=== PATIENT | male | born 1990 | race Caucasian/White ===

== ENCOUNTER 2019-12-03 18:21 | Emergency (ER) | payer BC, OTHER ==
[2019-12-03] MEDS ORDERED: Bacitracin Oint 1 GM U/D Packet TOP ONE (18:45)
--- NOTE | 2019-12-03 19:42 | EDM.PDOC ---
ED HPI GENERAL MEDICAL PROBLEM - General Chief Complaint: Laceration Stated Complaint: LACERATION TO CHIN Time Seen by Provider: 12/03/19 18:40 - History of Present Illness INITIAL COMMENTS - FREE TEXT/NARRATIVE: History of present illness: 29-year-old male presenting with irregular chin laceration sustained prior to arrival here. Apparently he was running through a softball field when he tripped and fell onto gravel and landed directly on his chin. The wound did bleed but bleeding is well controlled now. Does report that he had been drinking at the time. Review of systems: As per history of present illness and below otherwise all systems reviewed and negative. Past medical history: As per history of present illness and as reviewed below otherwise noncontributory. Surgical history: As per history of present illness and as reviewed below otherwise noncontributory. Social history: No reported history of drug abuse. Occasional alcohol and tobacco Family history: As per history of present illness and as reviewed below otherwise noncontributory. Physical exam: GEN: no acute distress, well appearing HEENT: Stellate, irregular laceration of the chin with some missing tissue, bleeding well controlled, normocephalic, mucous membranes moist, Neck: supple, nontender, trachea midline. Lungs: No respiratory distress. Heart: RRR Extremities: Atraumatic. Neurovascularly intact. Neuro: Awake, alert, oriented. Neuro Exam nonfocal. Skin: warm, dry, no lesions Diagnostics: [] Therapeutics: [] MDM: Very irregular complex chin laceration with multiple flaps and missing tissue. I discussed with the patient that this would be better repaired by plastic surgery and as we do not have a plastic surgeon here I recommended transfer, however the patient reports he does not want to be transferred nor have the wound repaired by plastic surgery, he prefers to have attempted repair here. Impression: [] Plan: [] Definitive disposition and diagnosis as appropriate pending reevaluation and review of above. Chin Pain Score (Numeric/FACES): 2 - Related Data Allergies Allergy/AdvReac Type Severity Reaction Status Date / Time No Known Allergies Allergy Verified 12/03/19 19:51 Home Meds: Home Meds cephALEXin [Keflex] 1,000 mg PO BID #40 cap 12/03/19 [Rx] Past Medical History - Past Health History Medical/Surgical History: Denies Medical/Surgical History Psychiatric History: Reports: Anxiety, Depression - Infectious Disease History Infectious Disease History: Reports: None Social & Family History - Family History Family Medical History: Noncontributory - Tobacco Use Smoking Status *Q: Current Every Day Smoker Years of Tobacco use: 2 Packs/Tins Daily: 0.5 - Caffeine Use Caffeine Use: Reports: Coffee, Energy Drinks - Recreational Drug Use Recreational Drug Use: No ED ROS GENERAL - Review of Systems Review Of Systems: See Below (See HPI) ED EXAM, SKIN/RASH Exam: See Below (See HPI) ED SKIN PROCEDURES - Laceration/Wound Repair Face Appearance: Subcutaneous, Other (Bone of chin visible) Distal NVT: Neuro & Vascular Intact Anesthetic Type: Local Local Anesthesia - Lidocaine (Xylocaine): 1% Plain Local Anesthetic Volume: 3cc Skin Prep: Chlorhexidine (Hibiciens), Providone-Iodine (Betadine), Saline Saline Irrigation (cc's): 500 Exploration/Debridement/Repair: Wound Explored, Explored to Base, Moderate Debridement, Moderately Undermined, Foreign Material Removed (Dirt and small bits of gravel), Wound Margins Revised, Multiple Flaps Aligned Closed with: Sutures Lac/Wound length In cm: 4 Suture Size: 5-0 # of Sutures: 12 Suture Type: Prolene, Interrupted Tetanus Status Addressed: Yes (Updated here) Complications: No Course - Vital Signs Text/Narrative:: Irregular, stellate contaminated wound. Discussed with patient on initial evaluation need for plastic surgery repair, however the patient declined. At the time of suturing, it was found that the bone of the mandible was visible through the incision. I again discussed with the patient my recommendation for plastic surgery evaluation and repair due to visible bone, however the patient again declined plastic surgery repair and request that instead I repair it. Wound was repaired, multiple flaps aligned, debrided and margins revised. Wound is very contaminated and was profusely irrigated and all visible gravel/dirt was removed as well as the patient's chin hair that had become contaminated into the wound as well. Patient's tetanus was not up-to-date. This was updated here. Will also cover with Keflex due to contamination of the wound. Last Recorded V/S: Last Vital Signs Temp 97.0 F 12/03/19 23:00 Pulse 72 12/03/19 23:00 Resp 18 12/03/19 23:00 BP 121/73 12/03/19 23:00 Pulse Ox 97 06/27/20 23:00 - Orders/Labs/Meds Orders: Active Orders 24 hr Category Date Time Status Vaccines to be Administered [RC] PER UNIT ROUTINE Care 12/03/19 20:25 Active Meds: Medications Discontinued Medications Generic Name Dose Route Start Last Admin Trade Name Hector PRN Reason Stop Dose Admin Bacitracin 1 dose 12/03/19 18:45 12/03/19 19:17 Bacitracin Oint 1 Gm TOP 12/03/19 18:46 1 dose ONETIME ONE Administration Cephalexin 500 mg 12/03/19 22:50 12/03/19 22:58 Keflex PO 12/03/19 22:51 500 mg ONETIME ONE Administration Diphtheria/Tetanus/Acell Pertussis 0.5 ml 12/03/19 20:25 12/03/19 21:32 Adacel IM 12/03/19 20:26 0.5 ml .ONCE ONE Administration Lidocaine HCl 15 ml 12/03/19 18:45 12/03/19 19:17 Xylocaine-Mpf 1% INJECT 12/03/19 18:46 15 ml ONETIME ONE Administration - Re-Assessments/Exams Free Text/Narrative Re-Assessment/Exam: 12/03/19 22:51 Tolerated suturing well. No acute distress. Wound significantly improved after suturing. Will refer for surgery follow-up for close monitoring, as well as discussed with patient need for suture removal in 7 days. Departure - Departure Time of Disposition: 22:51 Disposition: Home, Self-Care 01 Clinical Impression: Complex laceration of face Qualifiers: Encounter type: initial encounter Qualified Code(s): S01.91XA - Laceration without foreign body of unspecified part of head, initial encounter - Discharge Information Prescriptions: cephALEXin [Keflex] 1,000 mg PO BID #40 cap Instructions: Laceration Care, Adult, [id number], Sutures, [place], or Adhesive Wound Closure, [id number], Sutured Wound Care, [id number] Referrals: Jude Diaz MD [Primary Care Provider] - Forms: ED Department Discharge Additional Instructions: The following information is given to patients seen in the emergency department who are being discharged to home. This information is to outline your options for follow-up care. We provide all patients seen in our emergency department with a follow-up referral. The need for follow-up, as well as the timing and circumstances, are variable depending upon the specifics of your emergency department visit. If you don't have a primary care physician on staff, we will provide you with a referral. We always advise you to contact your personal physician following an emergency department visit to inform them of the circumstance of the visit and for follow-up with them and/or the need for any referrals to a consulting specialist. The emergency department will also refer you to a specialist when appropriate. This referral assures that you have the opportunity for follow-up care with a specialist. All of these measure are taken in an effort to provide you with optimal care, which includes your follow-up. Under all circumstances we always encourage you to contact your private physician who remains a resource for coordinating your care. When calling for follow-up care, please make the office aware that this follow-up is from your recent emergency room visit. If for any reason you are refused follow-up, please contact the [facility] Emergency Department at and asked to speak to the emergency department charge nurse. Please follow-up with the surgeon listed below for further evaluation and reassessment of your wound. You will also need suture removal in 7 days. [facility] - General Surgery Professional Building [address] [place] [address], [address] [place] [address] Sepsis Event Note (ED) - Evaluation Sepsis Screening Result: No Definite Risk - Focused Exam Vital Signs: Vital Signs Temp Pulse Resp BP Pulse Ox 12/03/19 23:00 97.0 F 72 18 121/73 97 12/03/19 18:45 97.0 F 84 15 112/77 95 - My Orders Last 24 Hours: My Active Orders 12/03/19 20:25 Vaccines to be Administered [RC] PER UNIT ROUTINE - Assessment/Plan Last 24 Hours: My Active Orders 12/03/19 20:25 Vaccines to be Administered [RC] PER UNIT ROUTINE
[2019-12-03] MEDS ORDERED: Diphtheria,Pertussis(Acell),Tetanus Vaccine 0.5 ML Syringe IM ONE (20:25)
[2019-12-03] MEDS ORDERED: Cephalexin 500 MG Cap PO ONE (22:50)
== END 2019-12-03 23:00 | disposition home or self-care (01) ==
LOC: MW.ED 18:21
DX: S01.82XA Laceration with foreign body of other part of head, initial encounter (principal); F17.210 Nicotine dependence, cigarettes, uncomplicated; Z23 Encounter for immunization; W01.0XXA Fall on same level from slipping, tripping and stumbling without subsequent striking against object, initial encounter; Y93.02 Activity, running
CPT/HCPCS: 12052; 90471; 90715; 99282; A9270; J2001; 12013

== ENCOUNTER 2019-12-10 10:42 | Emergency (ER) | payer BC | END 2019-12-10 11:02 | disposition home or self-care (01) | LOC: MW.ED 10:42 | DX: Z53.21 Procedure and treatment not carried out due to patient leaving prior to being seen by health care provider (principal) ==

== ENCOUNTER 2021-04-07 23:56 | Emergency (ER) | payer BC ==
--- NOTE | 2021-04-08 01:27 | EDM.PDOC ---
ED HPI GENERAL MEDICAL PROBLEM - General Chief Complaint: Behavioral/Psych Stated Complaint: MENTAL HEALTH EVAL Time Seen by Provider: 04/08/21 00:20 - History of Present Illness INITIAL COMMENTS - FREE TEXT/NARRATIVE: CHIEF COMPLAINT(S): "Mental health." HISTORY OF PRESENT ILLNESS: This is a 30-year-old man with a past medical history of depression who comes to the emergency department with a chief complaint of "mental health." The patient states that a couple of days ago he was having suicidal thoughts. He states that he does have intermittent suicidal thoughts but has never had a plan and never had a suicidal attempt. He states that he is currently not feeling suicidal. He denies any auditory or visual hallucinations and denies any homicidal ideation. Police who are with him stated that a friend called for a wellness check as they have not heard him since a couple of days ago after he expressed that he was feeling suicidal. The patient states that he has been on sertraline for 2 years and he feels like it is not as effective and that he has not tried to revisit the same doctor because every time he goes he gets a $250 bill and he cannot afford that. He denies any other symptoms at all. REVIEW OF SYSTEMS: Constitutional: Denies fever, chills. Eyes: Denies eye pain Ears, Nose, Mouth, & Throat: Denies earache Cardiovascular: Denies chest pain Respiratory: Denies shortness of breath Gastrointestinal: Denies Nausea, vomiting, diarrhea, hematochezia. Genitourinary: Denies hematuria Skin:Denies a rash MSK: Denies joint pain Neurological: Denies blurred vision Psychiatric: Positive for depression PAST MEDICAL HISTORY: As per history of present illness and as reviewed below otherwise noncontributory. SURGICAL HISTORY: As per history of present illness and as reviewed below otherwise noncontributory. SOCIAL HISTORY: As per history of present illness and as reviewed below otherwise noncontributory. FAMILY HISTORY: As per history of present illness and as reviewed below otherwise noncontributory. EXAMINATION OF ORGAN SYSTEMS/BODY AREAS: Constitutional: Blood pressure is 119/82, heart rate 83, respiratory rate 17 with an oxygen saturation 98% on room air. Temperature 36.6 General: Well-appearing man who is in no acute distress Psychiatric: Appropriate mood and affect. No suicidal ideation. Does not appear to be responding to internal stimuli Eyes: No scleral icterus or conjunctival erythema ENMT: Moist mucous membranes. No pharyngeal erythema Cardiovascular: Regular, rate, and rhythm. No gallops, murmurs, or rubs. Bilateral upper extremity pulses symmetric and intact. No peripheral edema. No JVD. Respiratory: Lungs clear to auscultation bilaterally. No wheezes, rales, or rhonchi. Gastrointestinal: Soft, non-tender, non-distended. Normoactive bowel sounds Genitourinary: No suprapubic tenderness Musculoskeletal: Normal range of motion. Skin: No lesions or abrasions. Neurological: Alert, GCS 15 MEDICAL DECISION MAKING AND COURSE IN THE ED WITH INTERPRETATION/REVIEW OF DIAGNOSTIC STUDIES: This is a 30-year-old man with a past medical history of depression who presents to the emergency department after a wellness check after expressing suicidal ideation a couple of days ago who is currently not suicidal. At this time I do not believe any further work-up is indicated as the patient appears well and denies any suicidal ideation. We did contact a local resource called [facility]. The counselor at [facility] has spoken to the patient today and agrees that the patient can follow-up at their clinic tomorrow morning between 730 and 8 AM and if the patient does not go to the clinic they do have the ability to follow-up and reach out to him. I did discuss this option with the patient he was amenable to this plan. He was given strict return precautions. DISPOSITION: The patient was discharged home in stable condition. The patient will follow up with [facility] today CONDITION: Fair PROCEDURES: None FINAL IMPRESSION(S)/DIAGNOSES: 1. Acute encounter for medical screening examination Rusty Black M.D. - Related Data Allergies Allergy/AdvReac Type Severity Reaction Status Date / Time No Known Allergies Allergy Verified 04/08/21 00:08 Home Meds: Home Meds cephALEXin [Keflex] 1,000 mg PO BID #40 cap 12/03/19 [Rx] Past Medical History - Past Health History Medical/Surgical History: Denies Medical/Surgical History Psychiatric History: Reports: Anxiety, Depression - Infectious Disease History Infectious Disease History: Reports: None Social & Family History - Family History Family Medical History: No Pertinent Family History - Caffeine Use Caffeine Use: Reports: Coffee, Energy Drinks - Recreational Drug Use Recreational Drug Type: Reports: Marijuana/Hashish ED ROS GENERAL - Review of Systems Review Of Systems: See Below ED EXAM, GENERAL - Physical Exam Exam: See Below Course - Vital Signs Last Recorded V/S: Last Vital Signs Temp 36.6 C 04/08/21 00:08 Pulse 73 04/08/21 01:41 Resp 16 04/08/21 01:41 BP 126/80 04/08/21 01:41 Pulse Ox 97 04/08/21 01:41 Departure - Departure Time of Disposition: : Disposition: Home, Self-Care 01 Condition: Fair Clinical Impression: Depressive disorder - Discharge Information *PRESCRIPTION DRUG MONITORING PROGRAM REVIEWED*: No *COPY OF PRESCRIPTION DRUG MONITORING REPORT IN PATIENT FRANCK: No Instructions: Major Depressive Disorder, Adult, [id number] Referrals: PCP,None [Primary Care Provider] - Forms: ED Department Discharge Additional Instructions: You were evaluated today on an emergent basis. At this time I do believe that you have contacted the right person for the resources for your depression and suicidal ideation a couple of days ago. We did contact them this evening and they want you to be evaluated at 7:30 AM. Please presented to [facility] at this time. If you have any worsening thoughts of hurting yourself I would like you to return to the emergency Department and call [phone]. [facility] [phone] The patient is informed of any results of their evaluation and diagnostic workup and all questions are answered. They are given discharge instructions and return precautions. The patient is stable for discharge. The patient states they understand and agree with the plan and that they will return if their symptoms get worse or if they have any new concerns. The following information is given to patients seen in the emergency department who are being discharged to home. This information is to outline your options for follow-up care. We provide all patients seen in our emergency department with a follow-up referral. The need for follow-up, as well as the timing and circumstances, are variable depending upon the specifics of your emergency department visit. If you don't have a primary care physician on staff, we will provide you with a referral. We always advise you to contact your personal physician following an emergency department visit to inform them of the circumstance of the visit and for follow-up with them and/or the need for any referrals to a consulting specialist. The emergency department will also refer you to a specialist when appropriate. This referral assures that you have the opportunity for follow-up care with a specialist. All of these measure are taken in an effort to provide you with optimal care, which includes your follow-up. Under all circumstances we always encourage you to contact your private physician who remains a resource for coordinating your care. When calling for follow-up care, please make the office aware that this follow-up is from your recent emergency room visit. If for any reason you are refused follow-up, please contact the [facility] Emergency Department at and asked to speak to the emergency department charge nurse. Sepsis Event Note (ED) - Focused Exam Vital Signs: Vital Signs Temp Pulse Resp BP Pulse Ox 04/08/21 01:41 73 16 126/80 97 04/08/21 00:08 36.6 C 83 17 119/82 98
== END 2021-04-08 01:39 | disposition home or self-care (01) ==
LOC: MW.ED 23:56
DX: F32.A Depression, unspecified (principal)
CPT/HCPCS: 99284

== ENCOUNTER 2022-08-18 00:02 | Emergency (ER) | payer BC ==
[2022-08-18] MEDS ORDERED: LORazepam 1 MG Tab PO ONE (01:39)
[2022-08-18] MEDS ORDERED: Nicotine 21 MG/24 Hr Patch TRDERM ONE (02:33)
[2022-08-18 03:15] LABS: CORONAVIRUS COVID-19 NAA NEGATIVE (NEGATIVE); INFLUENZA A NAA NEGATIVE (NEGATIVE); INFLUENZA B NAA NEGATIVE (NEGATIVE)
[2022-08-18 03:17] LABS: ACETAMINOPHEN <2.0 ug/mL; BLOOD UREA NITROGEN,BUN 5 mg/dL (7.0-18.0); CARBON DIOXIDE,CO2 22.7 mmol/L (21.0-32.0); CHLORIDE,CL 104 mmol/L (98-107); GLUCOSE RANDOM 93 mg/dL (74-106); POTASSIUM,K 3.8 mmol/L (3.5-5.1); SODIUM,NA 140 mmol/L (136-148)
[2022-08-18 03:23] LABS: ESTIMATED GFR 119 mL/min (>60)
== END 2022-08-18 16:31 ==
LOC: MW.ED 00:02
DX: R45.851 Suicidal ideations (principal); Z72.0 Tobacco use; Z20.822 Contact with and (suspected) exposure to COVID-19
CPT/HCPCS: 0240U; 36415; 80053; 80143; 80179; 80305; 80307; 81003; 83735; 84439; 84443; 84481; 85025; 99285; A9270; 99291

== ENCOUNTER 2025-04-03 16:36 | Emergency (ER) | payer BC ==
[2025-04-03 17:05] LABS: BASOPHILS ABSOLUTE AUTO 0.09 K/uL (0.00-0.20); BASOPHILS PERCENT AUTO 1.1 % (0.0-1.0); EOSINOPHILS ABSOLUTE AUTO 0.13 K/uL (0.00-0.45); EOSINOPHILS PERCENT AUTO 1.6 % (0.0-6.0); IMMATURE GRAN ABSOLUTE AUTO 0.02 K/uL (0.00-0.05); IMMATURE GRAN PERCENT AUTO 0.2 % (0.0-0.4); LYMPHOCYTES ABSOLUTE AUTO 2.84 K/uL (1.00-4.80); LYMPHOCYTES PERCENT AUTO 35.4 % (24.0-44.0); MEAN PLATELET VOLUME 9.6 fL (9.4-12.4); MONOCYTES ABSOLUTE AUTO 0.51 K/uL (0.00-0.80); MONOCYTES PERCENT AUTO 6.4 % (0.0-8.0); NEUTROPHILS ABSOLUTE AUTO 4.44 K/uL (1.80-7.70); NEUTROPHILS PERCENT AUTO 55.3 % (41.0-71.0); NRBC ABSOLUTE 0.00 K/uL (0.00-0.02); NRBC PERCENT 0.0 /100WBC (0.0-0.2); PLATELET COUNT,PLT 375 K/uL (150-400); RED BLOOD CELL COUNT 4.71 M/uL (4.52-5.90); WHITE BLOOD CELL COUNT,WBC 8.03 K/uL (3.9-11.3)
[2025-04-03 17:53] LABS: A/G RATIO 1.0 (0.9-1.6); ALANINE AMINOTRANSFERASE,ALT 36 IU/L (14-63); ASPARTATE AMNIOTRANSFERASE,AST 28 IU/L (15-37); BILIRUBIN TOTAL 0.2 mg/dL (0.2-1.0); BLOOD UREA NITROGEN,BUN 11 mg/dL (7.0-18.0); CARBON DIOXIDE,CO2 28.3 mmol/L (21.0-32.0); CHLORIDE,CL 105 mmol/L (98-107); CREATININE 1.0 mg/dL (0.8-1.3); EST CRCL DRUG DOSING (CG) 108.00 mL/min; GLUCOSE RANDOM 102 mg/dL (74-106); POTASSIUM,K 4.4 mmol/L (3.5-5.1); PROTEIN TOTAL,TP 8.2 g/dL (6.4-8.2); SODIUM,NA 144 mmol/L (136-148); TSH ULTRASENSITIVE 2.31 uIU/mL (0.36-3.74)
[2025-04-03 17:55] LABS: ESTIMATED GFR 103 mL/min (>60); ETHANOL BLOOD MEDICAL 362 mg/dL
[2025-04-03 18:51] LABS: APPEARANCE,URINE CLEAR; GLUCOSE,URINE NEGATIVE (NEGATIVE); OCCULT BLOOD,URINE NEGATIVE (NEGATIVE)
[2025-04-03 19:00] LABS: AMPHETAMINES SCREEN, URINE NEGATIVE (CUTOFF=500); BUPRENORPHINE SCREEN,URINE NEGATIVE (CUTOFF=10); EPITHELIAL CELLS,URINE OCCASIONAL (NONE-FEW); METHADONE SCREEN, URINE NEGATIVE (CUTOFF=200); METHAMPHETAMINES SCREEN, URINE NEGATIVE (CUTOFF=500); OXYCODONE SCREEN,URINE NEGATIVE (CUT0FF=100); PCP SCREEN,URINE NEGATIVE (CUTOFF=25); THC SCREEN,URINE 20 NG/ML PRESUMPTIVE POSITIVE (CUTOFF=50)
== END 2025-04-04 06:45 | disposition home or self-care (01) ==
LOC: MW.ED 16:36
DX: R45.851 Suicidal ideations (principal); F10.120 Alcohol abuse with intoxication, uncomplicated; F14.90 Cocaine use, unspecified, uncomplicated; F12.90 Cannabis use, unspecified, uncomplicated; Z79.899 Other long term (current) drug therapy; Y90.9 Presence of alcohol in blood, level not specified
CPT/HCPCS: 36415; 80053; 80143; 80179; 80305; 80307; 81001; 83735; 84443; 85025; 99284; 99285